=== PATIENT | male | born 1990 | race Caucasian/White ===

== ENCOUNTER 2020-01-28 22:10 | Emergency (ER) | payer OTHER ==
[2020-01-28] MEDS ORDERED: ANTIBIOTIC28.4 GM T (22:56)
[2020-01-28] MEDS ORDERED: CEPHALEXIN500 M1 PO (22:56)
== END 2020-01-29 00:02 | disposition home or self-care (01) ==
LOC: ED 22:10
DX: S91.012A Laceration without foreign body, left ankle, initial encounter (principal); W22.8XXA Striking against or struck by other objects, initial encounter; Y93.89 Activity, other specified; Y92.89 Other specified places as the place of occurrence of the external cause; Y99.8 Other external cause status